=== PATIENT | male | born 1985 | race Caucasian/White ===

== ENCOUNTER 2019-11-03 12:04 | Outpatient (CLI) | payer BC ==
--- NOTE | 2019-11-03 17:00 | MRI ---
MR CERVICAL SPINE WITHOUT CONTRAST INDICATION: 34-year-old male with neck pain and low back pain TECHNIQUE: Multiplanar multisequence MR images were obtained of the cervical spine without contrast. COMPARISON: None FINDINGS: Posterior fossa: Within normal limits. Bone marrow signal intensity: Normal Spinal alignment: Normal. Craniocervical junction: Normal appearing. Prevertebral and perivertebral soft tissues: Visualized soft tissues appear within normal limits. Vertebral levels: C2-C3: No appreciable central canal or neuroforaminal narrowing. C3-4: No appreciable central canal or neuroforaminal narrowing. C4-5: No appreciable central canal or neuroforaminal narrowing. C5-C6: No appreciable central canal or neuroforaminal narrowing. C6-C7:, No appreciable central canal or neuroforaminal narrowing. C7-T1: No appreciable central canal or neuroforaminal narrowing. IMPRESSION: 1. No appreciable central canal or neuroforaminal narrowing.
--- NOTE | 2019-11-03 17:02 | MRI ---
MR the lumbar spine without contrast INDICATION: Low back pain and radiculopathy COMPARISON: None. TECHNIQUE: Multiplanar multisequence MR images were obtained of lumbar spine without IV contrast. FINDINGS: Bone marrow: Bone marrow signal intensity appears within normal limits. Distal spinal cord and conus: Normal. The conus seen to terminate at L1. Visualized retroperitoneum and paraspinal soft tissues: Normal. Vertebral levels: L5-S1: There is mild bilateral facet joint degenerative change.. There is no appreciable central emmett l or neural foraminal narrowing. L4-5: No appreciable central canal or neuroforaminal narrowing. L3-4: No appreciable central canal or neuroforaminal narrowing. L2-3: No appreciable central canal or neuroforaminal narrowing. L1-L2: No appreciable central canal or neuroforaminal narrowing. T12-L1: No appreciable central canal or neuroforaminal narrowing. IMPRESSION: 1. No appreciable central canal or neuroforaminal narrowing.
== END 2019-11-03 12:05 | disposition home or self-care (01) ==
LOC: SCSMRI 12:04
PROVIDERS: ATTEND Surgery
DX: M54.5 Low back pain (principal); M54.2 Cervicalgia
CPT/HCPCS: 72141; 72148